=== PATIENT | female | born 1950 | race Two or more races ===

== ENCOUNTER 2019-06-27 08:11 | Inpatient (IN) | payer MEDICARE, MEDICAID ==
[2019-06-16 11:55] LABS: APPEARANCE,URINE CLEAR; BILIRUBIN, URINE NEGATIVE (NEGATIVE); COLOR,URINE PALE YELLOW; GLUCOSE, URINE (UA) NEGATIVE (NEGATIVE); KETONES,URINE NEGATIVE (NEGATIVE); LEUKOCYTE ESTERASE ,URINE 1+ (NEGATIVE); NITRITE,URINE NEGATIVE (NEGATIVE); PH,URINE 5 (4.5-8.0); PROTEIN,URINE NEGATIVE (NEGATIVE); UROBILINOGEN,URINE NORMAL MG/DL (0.0-1.0)
[2019-06-16 11:56] LABS: BASOPHILS % (AUTO) 1.3 % (0.0-2.0); EOSINOPHILS % (AUTO) 3.4 % (0.0-3.0); HEMATOCRIT 40.5 % (37.0-47.0); HEMOGLOBIN 13.6 G/DL (12.0-16.0); LYMPHOCYTES % (AUTO) 38.3 % (20.0-45.0); MEAN CORPUSCULAR VOLUME 91 FL (80-99); NEUTROPHILS % (AUTO) 50.1 % (45.0-75.0); PLATELET COUNT 320 K/UL (150-450); RED BLOOD COUNT 4.43 M/UL (4.20-5.40); RED CELL DISTRIBUTION WIDTH 13.5 % (11.6-14.8); WHITE BLOOD COUNT 8.7 K/UL (4.8-10.8)
[2019-06-16 12:11] LABS: INR 0.9 (0.9-1.1)
--- NOTE | 2019-06-16 16:16 | Diagnostic Imaging Report ---
Indication: Cough Technique: 2 views of the chest Comparison: None Findings: Atelectasis and/or scarring is seen in the right middle lobe. Lungs and pleural spaces are otherwise clear. There is a right chest port catheter in good position. There are multiple compression fractures of the thoracolumbar junction, resulting in kyphotic deformity Impression: Right middle lobe atelectasis versus scarring. No acute process otherwise Multiple focal lumbar junction compression fracture deformities, acuity indeterminate, with resultant kyphotic deformity. Consider MRI for better characterization if clinically relevant Other findings as noted, including port catheter,
[2019-06-17 08:05] LABS: ANION GAP 12 mmol/L (5-15); BLOOD UREA NITROGEN 19 mg/dL (7-18); CALCIUM 8.7 MG/DL (8.5-10.1); CARBON DIOXIDE 23 MMOL/L (21-32); CHLORIDE 103 MMOL/L (98-107); CREATININE 0.7 MG/DL (0.55-1.30); POTASSIUM 4.4 MMOL/L (3.5-5.1); SODIUM 138 MMOL/L (136-145)
--- NOTE | 2019-06-24 12:45 | Pre-op HX & Phy Repo 2 SIG ---
DATE OF ADMISSION: 06/27/2019 SCHEDULED FOR SURGERY: June 27, 2019. HISTORY OF PRESENT ILLNESS: The patient is a 68-year-old female in stable health with carcinoma of the left breast involving the nipple-areolar complex. In June 2017, the patient had an abnormal left mammogram and biopsy revealed infiltrating ductal carcinoma, but the patient refused surgery at that time. She also refused chemotherapy according to the oncologist except for oral medications. The cancer was estrogen and progesterone receptor negative, but HER2 positive. She was examined on August 31, 2018 with a large mass fungating through the nipple with some blood staining and mastectomy was recommended if the patient would not except neoadjuvant therapy. The patient subsequently did have neoadjuvant therapy and did well with a good response. She is scheduled to undergo left breast partial mastectomy including the nipple and left axillary lymph node dissection. PAST MEDICAL HISTORY AND MEDICATIONS: Dilaudid 2 mg p.o. p.r.n., dexamethasone, hydroxyzine, Imodium, metformin, [place], Protonix. ALLERGIES: Some kinds of tape. OPERATIONS: None. PHYSICAL EXAMINATION: GENERAL: The patient is 5 feet 3 inches, 143 pounds. VITAL SIGNS: Stable. HEENT: Within normal limits. LUNGS: Clear. HEART: Regular rhythm. BREASTS: Examination of the right breast unremarkable. Examination of the left breast reveals a 3 cm mass involving the nipple and areola and with enlarged left axillary lymph nodes. No supraclavicular lymphadenopathy. ABDOMEN: Soft. PELVIC AND RECTAL: Per primary care. EXTREMITIES: Without edema. NEUROLOGIC: Physiologic. IMPRESSION: Invasive ductal carcinoma, left breast, ER/HI negative, HER2 positive, status post neoadjuvant therapy. PLAN: Left breast partial mastectomy including nipple and areola and left axillary lymph node dissection. I have had a full discussion with the patient regarding the nature of her condition, the nature of the surgery, indications, alternatives, options, and risks including bleeding, infection, scarring or distortion of the breast, need for additional surgery or treatments based on final pathology, etc. All questions have been answered. I have discussed the risks of neuritis or neuralgia, etc. The patient understands and agrees to proceed. Cheo De Anda M.D. DR: OMARI JOB#: [id number] CC:
[~2019-06-27] VITALS: Ht 154.9 cm; Wt 64.9 kg
[2019-06-27] VITALS (17 sets, daily range): BP systolic 138–177; BP diastolic 83–99
[2019-06-27] MEDS ORDERED: INSULIN LI100 UNIT/2 SQ (08:50)
[2019-06-27] MEDS ORDERED: TYLENOL EXTRA500 MG ORAL (08:50)
[2019-06-27] MEDS ORDERED: METFORMIN HCL500 M1 ORAL (08:50)
[2019-06-27] MEDS ORDERED: Bacitracin 50000 Units Vial ONE (09:56)
--- NOTE | 2019-06-27 09:57 | Pre-Procedure Note/Attestation ---
Pre-Procedure Note/Attestation Complete Prior to Procedure Planned Procedure: left Procedure Narrative: left breast partial mastectomy including nipple and left axillary lymph node dissection Indications for Procedure Pre-Operative Diagnosis: invasive ductal carcinoma left breast Attestation I attest that I discussed the nature of the procedure; its benefits; risks and complications; and alternatives (and the risks and benefits of such alternatives ), prior to the procedure, with the patient (or the patient's legal customer solutions representative). I attest that, if there was a reasonable possibility of needing a blood transfusion, the patient (or the patient's legal customer solutions representative) was given the [facility] standardized written summary, pursuant to the Nils Binford Blood Safety Act ([place] Health and Safety Code # 1645, as amended). I attest that I re-evaluated the patient just prior to the surgery and that there has been no change in the patient's H&P, except as documented below: none Cheo De Anda MD Jun 27, 2019 09:57
[2019-06-27] MEDS ORDERED: NS Irrig 1000ml ONE (10:00)
[2019-06-27] MEDS ORDERED: LR 1000ml ONE (10:00)
[2019-06-27] MEDS ORDERED: Sterile Water Irrig 1000ml IRRIG ONE (10:00)
[2019-06-27] MEDS ORDERED: Propofol 1,000mg/ 100ml btl IV ONE (10:00)
[2019-06-27] MEDS ORDERED: LR 1000ml 1,000 ML IVLG SCH (10:06)
[2019-06-27] MEDS ORDERED: Sodium Chloride 10ml vial INJ ONE (10:07)
[2019-06-27] MEDS ORDERED: Lidocaine 1% MPF 10mg/ml 5ml ONE (10:07)
--- NOTE | 2019-06-27 10:08 | Anethesia Preoperative Eval ---
Anesthesia Pre-op PMH/ROS General Date of Evaluation: Jun 27, 2019 Time of Evaluation: 10:05 Anesthesiologist: Rimma ASA Score: ASA 3 Mallampati Score Class I : Soft palate, uvula, fauces, pillars visible Class II: Soft palate, uvula, fauces visible Class III: Soft palate, base of uvula visible Class IV: Only hard plate visible Mallampati Classification: Class II Surgeon: Adilson Diagnosis: L Breast CA Surgical Procedure: L Breast Partial Mastectomy and Lymph Node Dissection Anesthesia History: none Family History: no anesthesia problems Allergies: Coded Allergies: ADHESIVE TAPE (Verified Allergy, Intermediate, rash , 06/27/19) Medications: see eMAR Patient NPO?: Yes Past Medical History Cardiovascular: Reports: HTN Endocrine: Reports: DM Hematology/Immune: Reports: other - L Breast CA Musculoskeletal/Integumentary: Reports: OA Anesthesia Pre-op Phys. Exam Physician Exam Last Vital Signs Date Time Temp Pulse Resp B/P (MAP) Pulse Ox O2 Delivery O2 Flow Rate FiO2 06/27/19 08:57 Room Air 06/27/19 08:55 97.2 90 18 159/92 99 Constitutional: NAD Neurologic: CN 2-12 intact Cardiovascular: RRR Respiratory: CTA Gastrointestinal: S/NT/ND Airway Exam Mallampati Score: Class II MO: limited ROM: limited Teeth: missing, intact Dentures: upper Anesthesia Pre-op A/P Risk Assessment & Plan Assessment: ASA 3 Plan: GA, SED Status Change Before Surgery: No Pre-Antibiotics Dru Gram Ancef IV Given Within 1 Hr of Incision: Yes Time Given: 10:16 Pedro Shanks MD Jun 27, 2019 10:08
[2019-06-27] MEDS ORDERED: fentaNYL 100 mcg/2 mL IV ONE (10:13)
[2019-06-27] MEDS ORDERED: DiphenhydrAMINE 50mg/ml Inj IVP PRN (10:15)
[2019-06-27] MEDS ORDERED: Acetaminophen (Non formulary) 100 ML IV ONE (10:15)
[2019-06-27] MEDS ORDERED: HYDROcodone/Acetamin 7.5/325 tab ORAL PRN (10:15)
[2019-06-27] MEDS ORDERED: Midazolam 2mg/2ml Inj IVP PRN (10:15)
[2019-06-27] MEDS ORDERED: Metoclopramide 10mg/2ml Inj IVP PRN (10:15)
[2019-06-27] MEDS ORDERED: LORazepam Inj 2mg/ml 1ml IV PRN (10:15)
[2019-06-27] MEDS ORDERED: oxyCODONE HCL/Acetaminophen 5/325mg ORAL PRN (10:15)
[2019-06-27] MEDS ORDERED: Ketorolac 30mg Inj IV PRN ×2 (10:15)
[2019-06-27] MEDS ORDERED: Labetalol 5mg/ml 20ml vial IV PRN (10:15)
[2019-06-27] MEDS ORDERED: fentaNYL 100 mcg/2 mL IV PRN (10:15)
[2019-06-27] MEDS ORDERED: Meperidine 25mg/0.5ml Inj (FOR RIGORS ONLY) IV PRN ×2 (10:15→10:45)
[2019-06-27] MEDS ORDERED: HYDROcodone/Acetamin 5/325 tab ORAL PRN (10:15)
[2019-06-27] MEDS ORDERED: Hydromorphone 0.5mg/0.5ml inj IVP PRN (10:15)
[2019-06-27] MEDS ORDERED: Atropine Sulfate 0.4mg/ml inj IVP PRN (10:15)
--- NOTE | 2019-06-27 10:52 | Immediate Post-Op Evaluation ---
Immediate Post-Op Evalulation Immediate Post-Op Evalulation Procedure: L Breast Partial Mastectomy and Lymph Node Dissection Date of Evaluation: Jun 27, 2019 Time of Evaluation: 11:55 IV Fluids: 900 LR Blood Products: 0 Estimated Blood Loss: 30 Urinary Output: 0 Blood Pressure Systolic: 154 Blood Pressure Diastolic: 84 Pulse Rate: 98 Respiratory Rate: 16 O2 Sat by Pulse Oximetry: 100 Temperature (Fahrenheit): 97.6 Pain Score (1-10): 2 Nausea: No Vomiting: No Complications 0 Patient Status: awake, reacts, patent, extubated, none Hydration Status: adequate Dru Gram Ancef IV Given Within 1 Hr of Incision: Yes Time Given: 10:16 Pedro Shanks MD Jun 27, 2019 10:52
[2019-06-27] MEDS ORDERED: Naloxone 0.4mg/ml Inj ONE (11:16)
--- NOTE | 2019-06-27 11:41 | Brief Operative Note ---
Immediate Post Operative Note Operative Note Pre-op Diagnosis: invasive ductal carcinoma left breast Procedure: left breast partial mastectomy including nipple and left axillary lymph node dissection Post-op Diagnosis: same Post-op Diagnosis: same as pre-op Findings: consistent w/pre-op dx studies Surgeon: cornelius Anesthesiologist: aysha Anesthesia: general Specimen: yes - left breast tissue; left axillary lymph nodes Complications: none Condition: stable Fluids: see anesthesia record Estimated Blood Loss: minimal Drains: MALAIKA Implant(s) used?: No Cheo De Anda MD Jun 27, 2019 11:41
--- NOTE | 2019-06-27 11:43 | 48 Hour Post Anesthesia Eval ---
Post Anesthesia Evaluation Procedure: L Breast Partial Mastectomy and Lymph Node Dissection Date of Evaluation: Jun 27, 2019 Time of Evaluation: 14:23 Blood Pressure Systolic: 148 0: 82 Pulse Rate: 89 Respiratory Rate: 18 Temperature (Fahrenheit): 98.2 O2 Sat by Pulse Oximetry: 100 Airway: patent Nausea: No Vomiting: No Pain Intensity: 3 Hydration Status: adequate Cardiopulmonary Status: Stable Mental Status/LOC: patient returned to baseline Follow-up Care/Observations: 0 Post-Anesthesia Complications: 0 Follow-up care needed: N/A Pedro Shanks MD Jun 27, 2019 11:43
[2019-06-27] MEDS ORDERED: HYDROmorphone 1mg/ml Carpuject SUBQ PRN (11:45)
[2019-06-27] MEDS ORDERED: DiphenhydrAMINE 25mg Tab ORAL PRN (11:45)
--- NOTE | 2019-06-27 13:30 | NUR ---
NURSE NOTES: Patient arrived to unit via bed accompanied by RN. Received report from Sandrita SERRANO. Patient is awake and oriented, no acute distress noted, reporting no pain at this time, on 2L NC, SCD's in place, surgical site dressing clean and dry with one compressed MALAIKA drain noted, no output in drain as of this time. IV intact, patent. Patient updated on plan of care. Oriented to room, side rails upx3, bed low and locked, call light within reach.
[2019-06-27] MEDS: D5 1/2NS w/KCl 20mEq 1,000 ML IV SCH (16:00)
--- NOTE | 2019-06-27 16:30 | Operative Note - Dictated ---
DATE OF OPERATION: 06/27/2019 SURGEON: Cheo De Anda M.D. APPLICATIONS ENGINEER: None. ANESTHESIOLOGIST: Pedro Shanks M.D. ANESTHESIA: General. PREOPERATIVE DIAGNOSIS: Invasive ductal carcinoma, left breast involving nipple and axillary lymph nodes. POSTOPERATIVE DIAGNOSIS: Invasive ductal carcinoma, left breast involving nipple and axillary lymph nodes. OPERATION PERFORMED: Left breast partial mastectomy including the nipple-areolar complex and left axillary lymph node dissection. DESCRIPTION OF PROCEDURE: The patient was taken to the operating room and under general anesthesia with sequential compression device stockings in place, she was prepped and draped in usual fashion. A transversely oriented elliptical incision was outlined including a margin around the nipple-areolar complex and hemostasis achieved with cautery. A wide excision partial mastectomy was performed down to the chest wall and the specimen oriented with suture markers for the pathologist who confirmed margins were clear. The field was irrigated with water and antibiotic solution. Hemostasis carefully achieved with cautery. The incision was closed with continuous 3-0 Vicryl deep dermal subcutaneous sutures followed by skin abbey. Then, a left axillary incision was made, achieving hemostasis with cautery and incising the clavipectoral fascia. There were matted lymph nodes present all of which were resected using the Thunderbeat electrosurgical device. One additional interpectoral node was resected as well given as a separate specimen for the pathologist. Through a separate stab incision inferiorly, a 10 mm flat Emory-Carter drain was placed into the axilla and sutured to the skin with a skin suture. The field was irrigated and hemostasis carefully secured. The clavipectoral fascia was closed with interrupted 3-0 Vicryl as were the subcutaneous tissues. Skin closed with continuous 4-0 Monocryl subcuticular suture. Tincture of benzoin and half-inch Steri-Strips were applied to both incisions followed by dry sterile dressing. Final sponge and needle counts were correct. The patient tolerated the procedure well and left the operating room in good condition. Cheo De Anda M.D. DR: OMARI JOB#: [id number] CC:
[2019-06-27] MEDS: metFORMIN 500mg tab ORAL SCH (18:35)
[2019-06-27] MEDS: ceFAZolin sod 1 GM in D5W 55 ML IV SCH (18:35)
--- NOTE | 2019-06-27 19:30 | NUR ---
NURSE NOTES: Received pt from ZACH Roman. AAO x 4, on room air. Iv site intact and running IVF. Surgical site dressing dry and clean. MALAIKA drain attached. Pt c/o pain 9/10 on L breast and back. No acute distress noted. No labored breathing. Bed locked, lowest position, side rails up, call light within reach. will continue to monitor.
--- NOTE | 2019-06-27 19:39 | NUR ---
HAND-OFF: Report given to Petrona SERRANO.
[2019-06-27] MEDS: NovoLOG Insulin Flexpen SUBQ SCH (20:23)
[2019-06-28] MEDS: ceFAZolin sod 1 GM in D5W 55 ML IV SCH (02:15)
[2019-06-28 04:00] VITALS: BP 150/90
[2019-06-28] MEDS: NovoLOG Insulin Flexpen SUBQ SCH ×4 (05:22→20:27)
[2019-06-28] MEDS: D5 1/2NS w/KCl 20mEq 1,000 ML IV SCH (05:24)
--- NOTE | 2019-06-28 07:24 | NUR ---
HAND-OFF: Report given to ZACH Noble.
[2019-06-28 08:00] VITALS: BP 167/93
--- NOTE | 2019-06-28 08:00 | NUR ---
NURSE NOTES: Received report from Petrona SERRANO, pt a/a/o x4 laying in bed with no signs of distress or other issues at this time. surgical dressing dry and intact. MALAIKA drain out put over night 25ml. IV right RIVERA gauge#20 running D5 1/2 NS +20mEq@75ml/hr. call light within reach, bed in lowest position, side rales up x2. I will f/u as needed.
--- NOTE | 2019-06-28 08:30 | General Progress Note ---
Progress Note Progress Note AVSS Has required dilaudid SQ for pain. Not ambulating yet - needs a walker due to back pain left breast and axilla incisions clean with intact steristrips MALAIKA 25cc serosang overnight I&O ok IMp: Post-op paint requiring dilaudid Plan: maintain in hospital today encourage po analgesics PT mobility protocol teach care of Cheo Campos MD Jun 28, 2019 08:30
[2019-06-28] MEDS: metFORMIN 500mg tab ORAL SCH ×2 (09:13→18:07)
[2019-06-28] MEDS: HYDROcodone/Acetamin 5/325 tab ORAL PRN ×2 (09:15→18:07)
--- NOTE | 2019-06-28 09:25 | NUR ---
PT EVALUATION NOTE Patient seen for initial evaluation. Patient presents with generalized weakness and pain which impairs patient's ability to perform mobility skills safely. Patient requires SBA and FWW for transfers. Patient able to ambulate 200 ft with SBA and FWW, slightly unsteady during ambulation. Patient will benefit from skilled inpatient PT intervention to address strength, balance and safety for improved level of independence with functional mobility. Recommend discharge home once medically cleared by MD. Patient has FWW and SPC at home for ambulation. Addendum: 06/28/19 at 1112 by JHONNY JONES PT Amended: Links added.
[2019-06-28 11:49] VITALS: BP 135/85
--- NOTE | 2019-06-28 12:30 | NUR ---
HAND-OFF: Report given to Jessie SERRANO. pt in stable condition.
--- NOTE | 2019-06-28 12:30 | NUR ---
NURSE NOTES: Received report from Real SERRANO. Patient is awake and oriented, no acute distress noted, reporting mild surgical site pain, surgical site dressing clean and intact, MALAIKA compressed with serous output noted. IVF running per order. Fall precautions maintained, BSC at bedside. Side rails upx2, bed low and locked, call light within reach, bed alarm armed.
--- NOTE | 2019-06-28 14:29 | NUR ---
CASE MANAGEMENT:INITIAL REVIEW 68YR OLD FEMALE HERE FOR ELECTIVE SURGERY CC: LEFT BREAST CA SI:INVASIVE DUCTAL CARCINOMA OF LEFT BREAST INVOLVING NIPPLE AND AXILLARY LYMPH NODES 97.2 90 18 159/92 99% ON RA IS: IN SURGERY NOW IV ROCEPHIN Q8HR X2 BAGS IV D5@75ML/HR METFORMIN PO BID NORCO PO Q4HR \: 3E MED SURG UNIT CASE MANAGEMENT: REVIEW 06/28/2019 SI:POD#1 LEFT BREAST PARTIAL MASTECTOMY INCLUDING THE NIPPLE AND AXILLARY INVASIVE DUCTAL CARCINOMA OF LEFT BREAST INVOLVING NIPPLE AND AXILLARY LYMPH NODES 97.2 90 18 159/92 99% ON RA IS: IV D5@75ML/HR METFORMIN PO BID NORCO PO Q4HR DILAUDID Q3HR/PRN \: 3E MED SURG UNIT PLAN: PT TO AMBULATE TEACH CARE OF MALAIKA DRAIN
[2019-06-28 16:00] VITALS: BP 150/99
--- NOTE | 2019-06-28 19:17 | NUR ---
HAND-OFF: Report given to Petrona SERRANO.
--- NOTE | 2019-06-28 19:20 | NUR ---
NURSE NOTES: Received pt from ZACH Roman. AAO x 4, on room air. Iv site intact. Surgical site dressing dry and clean. MALAIKA drain attached with small amount drainage. No acute distress noted. No labored breathing. Bed locked, lowest position, side rails up, call light within reach. will continue to monitor.
[2019-06-28 20:00] VITALS: BP 150/95
[2019-06-29] VITALS: BP 147/93
[2019-06-29 04:00] VITALS: BP 110/68
[2019-06-29] MEDS: NovoLOG Insulin Flexpen SUBQ SCH (05:37)
--- NOTE | 2019-06-29 07:14 | NUR ---
HAND-OFF: Report given to ZACH Noble.
[2019-06-29 08:00] VITALS: BP 147/93
--- NOTE | 2019-06-29 08:00 | NUR ---
NURSE NOTES: Received report Petrona SERRANO, pt a/a/o x4 laying in bed with no signs of distress or other issues at this time. surgical dressing dry and intact. IV on the right hand gauge#20 running D51/2 NS+20mEq@75ml/hr. call light within reach, bed in lowest position. side rales up x2. I will f/u as needed.
--- NOTE | 2019-06-29 08:25 | General Progress Note ---
Progress Note Progress Note Doing well, taking occasional [place] Left breast and axilla healing nicely MALAIKA 38cc serosang Imp: Improved Plan: Discharge Rx [place] #30 Instructions/limitations/supplies discussed/provided Will record MALAIKA drain output f/u office 07/05 Cheo De Anda MD Jun 29, 2019 08:25
[2019-06-29] MEDS: HYDROcodone/Acetamin 5/325 tab ORAL PRN (09:39)
[2019-06-29] MEDS: metFORMIN 500mg tab ORAL SCH (09:39)
--- NOTE | 2019-06-29 11:15 | NUR ---
NURSE NOTES: Received order to d/c pt home. discharge instructions and belongings list given to patient. IV removed prior to d/c. Dr. De Anda changed surgical dressing. RN instructed patient how to record and empty MALAIAK drain. pt verbalized understanding and able to demonstrate back. RN given supplies to change dressing as needed as well as recording paper. pt left the floor with no signs of distress or other issues at this time. pt's son will provide transportation. I will f/u as needed.
--- NOTE | 2019-07-04 15:52 | Discharge Summary ---
Discharge Summary Hospital Course Date of Admission Jun 27, 2019 at 14:27 Date of Discharge Jun 29, 2019 at 11:25 Admitting Diagnosis Invasive ductal carcinoma, left breast involving nipple and axillary lymph nodes. Reason for Hospitalization: elective surgery ANA MARIA Rao is a 68 year old female was admitted on Jun 27, 2019 at 14:27 for Left Breast Cancer . nipple and axillary lymph nodes. Patient was admitted for elective surgery. Patient with invasive ductal carcinoma, left breast, ER/AK negative, HER2 positive, status post neoadjuvant therapy. Procedures s/p 06/27/[address] Anda Left breast partial mastectomy including the nipple-areolar complex and left axillary lymph node dissection. Hospital Course status post surgery course of recovery uneventful initially IV fluids s/p perioperative antibiotics left breast and axilla incisions clean with intact steri-strips pain management was addressed initially required IV Dilaudid, then subsequently was able to be transitioned to oral analgesics patient had MALAIKA drain , output was closely monitored patient was taught how to care of MALAIKA drain at home remained hemodynamically stable required walker to ambulate due to back pain ambulated with PT fall precautions maintained; safe for ambulation DVT prophylaxis provided use of incentive spirometry was encouraged while in the bed tolerated diet , IV fluids discontinued GI prophylaxis provided antiemetics were on board as needed blood sugar was closely monitored and managed with metformin, sliding sxcale of insulin wa son bioard as needed voided freely bowel regimen instituted patient was stable for discharge prescription or [place] 5/325 #30 provided instructions/limitations/supplies discussed/provided patient to record MALAIKA drain output at home patient to follow up in the office 07/05 FINAL DIAGNOSES Invasive ductal carcinoma, left breast involving nipple and axillary lymph nodes. ER/AK negative, HER2 positive, status post neoadjuvant therapy. s/p Left breast partial mastectomy including the nipple-areolar complex and left axillary lymph node dissection. Discharge Medications Continued Medications: Acetaminophen* (Tylenol Extra Strength*) 500 Mg Tablet 500 MG ORAL Q6H PRN for Mild Pain/Temp > 100.5, TAB 0 Refills (This prescription has been renewed) Insulin Lispro (Insulin Lispro Kwikpen U-100) 100 Unit/1 Ml Insuln.pen 8 UNIT SQ BEFORE BREAKFAST for diabetes, EA Metformin Hcl* (Metformin Hcl*) 500 Mg Tablet 500 MG ORAL TWICE A DAY for diabetes, TAB (This prescription has been renewed) Discharge Discharge Vital Signs Last Vital Signs Date Time Temp Pulse Resp B/P (MAP) Pulse Ox O2 Delivery O2 Flow Rate FiO2 06/29/19 10:09 98.1 06/29/19 09:00 Room Air 06/29/19 08:00 95 16 147/93 (111) 97 06/27/19 14:20 2.0 Discharge Disposition Patient was discharged to Home (01) Discharge Instructions Discharge Instructions Special Instructions I have been assigned to complete a D/C Summary on this account. I was not involved in the patient management Mora Contreras NP Jul 04, 2019 15:52
== END 2019-06-29 11:25 | disposition home or self-care (01) | DRG 581 ==
LOC: SUR 08:11 → 3E 14:27
PROC: 0HBU0ZZ Excision of Left Breast, Open Approach (ICD-10-PCS; principal; 2019-06-27 10:00)
PROC: 07B60ZX Excision of Left Axillary Lymphatic, Open Approach, Diagnostic (ICD-10-PCS; principal; 2019-06-27 10:00)
DX: C50.112 Malignant neoplasm of central portion of left female breast (principal); Z17.1 Estrogen receptor negative status [ER-]; G89.18 Other acute postprocedural pain; E11.9 Type 2 diabetes mellitus without complications; Z79.4 Long term (current) use of insulin
CPT/HCPCS: 36415; 71046; 80048; 81003; 82962; 85025; 85610; 85730; 87081; 93005; 94003; 94150; J1815; J2250; J2405